=== PATIENT | male | born 1990 | race Caucasian/White ===

== ENCOUNTER 2020-12-16 07:08 | Day surgery (SDC) | payer BC ==
[~2020-12-16 07:08] MED LIST: Dexamethasone 4 MG/ML 5 ML MDV ONE; Lactated Ringers 1,000 ML IV SCH; Lidocaine 2% 5 ML SDV ONE; Midazolam 1 MG/ML 2 ML SDV ONE; Ondansetron 4 MG/2 ML SDV ONE; Propofol 200 MG/20 ML SDV ONE; Rocuronium Bromide 50 MG/5 ML Syringe ONE; Sodium Chloride 0.9% 10 ML SDV IV PRN; Sodium Chloride 0.9% 10 ML Syringe FLUSH PRN; Sodium Chloride 0.9% 2.5 ML Syringe FLUSH PRN; ceFAZolin 1 GM in Premix Bag 1 BAG IV ONE; fentaNYL 100 MCG/2 ML SDV ONE
[2020-12-16] MEDS ORDERED: Lidocaine 1% 20 ML MDV ONE (07:16)
[2020-12-16] MEDS ORDERED: Methylene Blue 50 MG/10 ML Ampule ONE (07:16)
[2020-12-16] MEDS ORDERED: Octyl 2-Cyanoacrylate 1 Tube ONE (07:16)
[2020-12-16] MEDS ORDERED: Bupivacaine 0.5% 30 ML SDV ONE (07:16)
--- NOTE | 2020-12-16 07:35 | PCM.PREANE ---
Preanesthetic Assessment - Anesthesia/Transfusion/Family Hx Anesthesia History: Prior Anesthesia Without Reaction Family History of Anesthesia Reaction: No Transfusion History: No Prior Transfusion(s) Intubation History: Unknown - Review of Systems General: No Symptoms Pulmonary: No Symptoms Cardiovascular: No Symptoms Gastrointestinal: No Symptoms Neurological: No Symptoms Other: Reports: None - Physical Assessment Vital Signs: Last Vital Signs Temp 36.2 C 12/16/20 07:15 Pulse 78 12/16/20 07:15 Resp 16 12/16/20 07:15 BP 124/79 12/16/20 07:15 Pulse Ox 96 12/16/20 07:15 Height: 5 ft 11 in Weight: 82.1 kg ASA Class: 2 Mental Status: Alert & Oriented x3 Airway Class: Mallampati = 2 Dentition: Reports: Normal Dentition Thyro-Mental Finger Breadths: 3 Mouth Opening Finger Breadths: 3 ROM/Head Extension: Full Lungs: Clear to Auscultation, Normal Respiratory Effort Cardiovascular: Regular Rate, Regular Rhythm - Lab Values: Laboratory Last Values SARS-CoV-2 RNA (PAULIE) NEGATIVE (NEGATIVE) 12/16/20 06:10 - Allergies Allergies/Adverse Reactions: Allergies Allergy/AdvReac Type Severity Reaction Status Date / Time No Known Allergies Allergy Verified 12/16/20 06:31 - Blood Blood Available: No - Anesthesia Plan Pre-Op Medication Ordered: None - Acknowledgements Anesthesia Type Planned: General Anesthesia Pt an Appropriate Candidate for the Planned Anesthesia: Yes Alternatives and Risks of Anesthesia Discussed w Pt/Guardian: Yes Pt/Guardian Understands and Agrees with Anesthesia Plan: Yes PreAnesthesia Questionnaire HEENT History: Reports: None Cardiovascular History: Reports: None Respiratory History: Reports: None Gastrointestinal History: Reports: None Genitourinary History: Reports: None Musculoskeletal History: Reports: Fracture Other Musculoskeletal History: hx fx arm Neurological History: Reports: None Psychiatric History: Reports: None Endocrine/Metabolic History: Reports: None Hematologic History: Reports: None Immunologic History: Reports: None Oncologic (Cancer) History: Reports: None Dermatologic History: Reports: None - Infectious Disease History Infectious Disease History: Reports: Chicken Pox - Past Surgical History Head Surgeries/Procedures: Reports: None HEENT Surgical History: Reports: None Cardiovascular Surgical History: Reports: None Respiratory Surgical History: Reports: None GI Surgical History: Reports: Appendectomy Male Surgical History: Reports: None Endocrine Surgical History: Reports: None Neurological Surgical History: Reports: None Musculoskeletal Surgical History: Reports: None Oncologic Surgical History: Reports: None Dermatological Surgical History: Reports: None - SUBSTANCE USE Tobacco Use Status *Q: Current Every Day Tobacco User Tobacco Use Within Last Twelve Months: Vaping - HOME MEDS Home Medications: Home Meds . [No Known Home Meds] 12/15/20 [History] - CURRENT (IN HOUSE) MEDS Current Meds: Current Medications Lactated Ringer's (Ringers, Lactated) 1,000 mls @ 125 mls/hr IV ASDIRECTED ANABELL Last Admin: 12/16/20 07:21 Dose: 125 mls/hr Documented by: Sodium Chloride (Saline Flush) 2.5 ml FLUSH ASDIRECTED PRN PRN Reason: Keep Vein Open Sodium Chloride (Normal Saline) 10 ml IV ASDIRECTED PRN PRN Reason: IV Use Sodium Chloride (Saline Flush) 10 ml FLUSH ASDIRECTED PRN PRN Reason: Keep Vein Open Discontinued Medications Bupivacaine HCl (Marcaine 0.5%) Confirm Administered Dose 30 ml .ROUTE .STK-MED ONE Stop: 12/16/20 07:17 Dexamethasone (Dexamethasone) Confirm Administered Dose 20 mg .ROUTE .STK-MED ONE Stop: 12/16/20 07:02 Fentanyl (Sublimaze) Confirm Administered Dose 100 mcg .ROUTE .STK-MED ONE Stop: 12/16/20 06:56 Cefazolin Sodium/Dextrose 1 gm (/ Premix) 50 mls @ 100 mls/hr IV ONETIME ONE Stop: 12/13/20 11:42 Lidocaine (Xylocaine-Mpf 2%) Confirm Administered Dose 5 ml .ROUTE .STK-MED ONE Stop: 12/16/20 07:02 Lidocaine HCl (Xylocaine 1%) Confirm Administered Dose 20 ml .ROUTE .STK-MED ONE Stop: 12/16/20 07:17 Methylene Blue (Provayblue) Confirm Administered Dose 50 mg .ROUTE .STK-MED ONE Stop: 12/16/20 07:17 Midazolam HCl (Versed 1 Mg/Ml) Confirm Administered Dose 2 mg .ROUTE .STK-MED ONE Stop: 12/16/20 06:56 Octyl Cyanoacrylate (Dermabond Advance) Confirm Administered Dose 1 applic .ROUTE .STK-MED ONE Stop: 12/16/20 07:17 Ondansetron HCl (Zofran) Confirm Administered Dose 4 mg .ROUTE .STK-MED ONE Stop: 12/16/20 07:02 Propofol (Diprivan 20 Ml) Confirm Administered Dose 200 mg .ROUTE .STK-MED ONE Stop: 12/16/20 06:56 Rocuronium [place] (Rocuronium [place]) Confirm Administered Dose 50 mg .ROUTE .STK-MED ONE Stop: 12/16/20 07:02
[2020-12-16] MEDS ORDERED: Sodium Chloride 0.9% 20 ML ONE (07:36)
[2020-12-16] MEDS ORDERED: ceFAZolin 1 GM Vial ONE ×2 (07:36→08:07)
[2020-12-16] MEDS ORDERED: Succinylcholine/Sod PF 100 MG/5 ML SYRINGE IV ONE (07:59)
[2020-12-16] MEDS ORDERED: fentaNYL 100 MCG/2 ML SDV ONE (08:11)
[2020-12-16] MEDS ORDERED: ePHEDrine 50 MG/ML SDV ONE (08:17)
[2020-12-16] MEDS ORDERED: Glycopyrrolate 0.2 MG/ML SDV ONE (08:27)
[2020-12-16] MEDS ORDERED: Ketorolac 30 MG/ML SDV ONE (08:45)
--- NOTE | 2020-12-16 09:03 | PCM.OPNOTE ---
- General Post-Op/Procedure Note Date of Surgery/Procedure: 12/16/20 Operative Procedure(s): Excision posterior neck lipoma Findings: 3.5 x 3 x 1.5 cm mass on posterior neck midline Pre Op Diagnosis: Lipoma of neck Post-Op Diagnosis: same Anesthesia Technique: General ET Tube Primary Surgeon: Tasha Barahona Fluid Replacement, Intraop: 900 EBL in mLs: 5 Condition: Good
--- NOTE | 2020-12-16 09:55 | PCM.POSTAN ---
POST ANESTHESIA ASSESSMENT - MENTAL STATUS Mental Status: Alert, Oriented - VITAL SIGNS Vital Signs: Last Vital Signs Temp 36.1 C 12/16/20 09:04 Pulse 90 12/16/20 09:39 Resp 12 12/16/20 09:39 BP 105/66 12/16/20 09:39 Pulse Ox 98 12/16/20 09:39 - RESPIRATORY Respiratory Status: Respiratory Rate WNL, Airway Patent, O2 Saturation Stable - CARDIOVASCULAR CV Status: Pulse Rate WNL, Blood Pressure Stable - GASTROINTESTINAL GI Status: No Symptoms - PAIN Pain Score: 0 - POST OP HYDRATION Hydration Status: Adequate & Stable - OBSERVATIONS Free Text/Narrative:: No anesthesia problems
--- NOTE | 2020-12-16 11:21 | PCM48HPAN ---
Post Anesthesia Note - EVALUATION WITHIN 48HRS OF ANESTHETIC Vital Signs in Normal Range: Yes Patient Participated in Evaluation: Yes Respiratory Function Stable: Yes Airway Patent: Yes Cardiovascular Function Stable: Yes Hydration Status Stable: Yes Pain Control Satisfactory: Yes Nausea and Vomiting Control Satisfactory: Yes Mental Status Recovered: Yes Vital Signs: Last Vital Signs Temp 36 C L 12/16/20 09:45 Pulse 87 12/16/20 10:30 Resp 14 12/16/20 10:30 BP 101/59 L 12/16/20 10:30 Pulse Ox 97 12/16/20 10:30 - COMMENTS/OBSERVATIONS Free Text/Narrative:: No anesthesia problems
--- NOTE | 2020-12-16 12:49 | OR ---
SURGEON: TASHA BARAHONA MD DATE OF PROCEDURE: 12/16/2020 PREOPERATIVE DIAGNOSIS: Posterior neck lipoma. POSTOPERATIVE DIAGNOSIS: Posterior neck lipoma. PROCEDURE PERFORMED: Excision, posterior neck lipoma. PRIMARY SURGEON: Tasha Barahona MD ANESTHESIA: General endotracheal anesthesia. FLUIDS: 900 mL of crystalloid. ESTIMATED BLOOD LOSS: 5 mL. FINDINGS: 3.5 x 3 x 1 cm posterior neck mass with findings consistent of a lipoma. COMPLICATIONS: None. INDICATIONS: The patient is a 29-year-old male who presented to clinic with a posterior neck mass. A CT scan of this was performed, which showed a 3 cm lipoma abutting the fascia of the posterior neck. The decision was made to excise this in the operating room. I explained the procedure, expected perioperative course, and the risks. The patient verbalized understanding and wishes to proceed. PROCEDURE IN DETAIL: The patient was brought into the OR and placed on the OR cart in supine position. A time-out was completed verifying the patient's name, age, date of , allergies, and procedure to be performed. General endotracheal anesthesia was induced. The patient was then placed in a right lateral decubitus position and the neck was prepped and draped in usual standard fashion. I anesthetized the area overlying the posterior neck mass with a 1:1 mixture of 0.5% Marcaine and 1% lidocaine plain. A 15 blade was used to make an incision horizontally along the skin lines overlying the mass. Cautery was used to dissect down to level of subcutaneous fat. Once I reached the subcutaneous fat, I grasped the mass with an Allis clamp. There was a thick capsule around the lipoma itself. Using electrocautery, I dissected this free from the surrounding skin and subcutaneous fat tissues down to the level of the muscular fascia. Using electrocautery as well as blunt dissection, I carefully the underside of the mass from the fascia. Once this was completely , I placed it on the back table. It was measured. It measured 3.5 x 3 x 1.5 cm in size. No margins were associated with this case. It was sent to pathology, labeled as posterior neck lipoma. I then inspected my operative field. Hemostasis was achieved with electrocautery. I irrigated the wound with normal saline and suctioned this out. I then closed the wound with interrupted 3-0 Vicryl sutures in the subcutaneous fat layer. I closed the skin with a running locking 3-0 Ethilon suture. Sterile dressings were applied. The patient was placed back in supine position and extubated. He was taken to PACU in stable condition. All counts were complete and correct at the end of the case. FELICITY BLAIR /[id number]
== END 2020-12-16 11:40 | disposition home or self-care (01) ==
LOC: MW.SDS 07:08
PROVIDERS: ATTEND Surgery
DX: D17.0 Benign lipomatous neoplasm of skin and subcutaneous tissue of head, face and neck (principal); F17.290 Nicotine dependence, other tobacco product, uncomplicated; Z20.822 Contact with and (suspected) exposure to COVID-19; Z01.812 Encounter for preprocedural laboratory examination
CPT/HCPCS: 21556; 87635; J0330; J0690; J1100; J1885; J2250; J2405; J2704; J3010; J3490; J7120; 00300; A9270-GY; U0002